=== PATIENT | male | born 1990 | race Caucasian/White ===

== ENCOUNTER 2018-12-16 15:57 | Emergency (ER) | payer MEDICAID ==
[~2018-12-16] VITALS: Ht 180.3 cm; Wt 86.3 kg
[~2018-12-16 15:57] MED LIST: NONE PER PT
--- NOTE | 2018-12-16 16:30 | NUR ---
SEE TRIAGE NOTE. PT PLACED ON HEART MONITOR, BP CUFF, PULSE OX. PT C/O R SIDED HILTON DESCRIBED "PRESSURE" WITH SLIGHT NAUSEA, NO PHOTOPHOBIA. PT AND FAMILY UPDATED ON POC. CALL LIGHT WITHIN REACH.
--- NOTE | 2018-12-16 17:34 | NUR ---
ROUNDED ON PT, INFORMED OF CURRENT RESULTS. VSS/UPDATED IN COMPUTER. AWAITING LABS RESULTS
[2018-12-16 17:35] LABS: MEAN CORPUSCULAR HEMOGLOBIN 33.9 pg (27.5-34.5); MEAN CORPUSCULAR HGB CONC 33.2 g/dL (33.2-36.2); MEAN PLATELET VOLUME 7.9 fL (7.4-10.4); PLATELET COUNT 237 x10^3/uL (130-400); RED BLOOD COUNT 4.86 x10^6/uL (4.38-5.82); RED CELL DISTRIBUTION WIDTH 13.9 % (9.4-14.8)
[2018-12-16 17:49] LABS: ALBUMIN 4.1 g/dL (3.4-5.0); ANION GAP 5 mmol/L (5-15); CALCIUM 9.6 mg/dL (8.5-10.1); CHLORIDE 107 mmol/L (98-107); CREATININE 1.08 mg/dL (0.7-1.3)
[2018-12-16 17:52] LABS: TROPONIN I < 0.015 ng/mL (0.000-0.045)
[2018-12-16 17:55] LABS: BASOPHILS # (AUTO) 0.05 x10^3/uL (0-0.1); BASOPHILS % (AUTO) 1 % (0-1); EOSINOPHILS # (AUTO) 0.12 x10^3/uL (0-0.4); EOSINOPHILS % (AUTO) 2 % (1-7); LYMPHOCYTES # (AUTO) 1.98 x10^3/uL (1-3.4); LYMPHOCYTES % (AUTO) 28 % (22-44); MD SCAN; MONOCYTES # (AUTO) 0.77 x10^3/uL (0.2-0.8); MONOCYTES % (AUTO) 11 % (2-9); NEUTROPHILS # (AUTO) 4.16 x10^3/uL (1.8-6.8); NEUTROPHILS % (AUTO) 59 % (42-75)
--- NOTE | 2018-12-16 18:15 | NUR ---
LAB RESULTS BACK, PT FOR RECHECK.
--- NOTE | 2018-12-16 18:55 | NUR ---
REPORT TO CURTIS MCCULLOUGH.
[2018-12-16 19:05] VITALS: BP 112/62
== END 2018-12-16 19:08 | disposition home or self-care (01) ==
LOC: ED 17:46
DX: R55 Syncope and collapse (principal); R00.2 Palpitations; F17.200 Nicotine dependence, unspecified, uncomplicated; Z90.89 Acquired absence of other organs
CPT/HCPCS: 36415; 70450; 71045; 80048; 82040; 84484; 85025; 93005; 99284

== ENCOUNTER 2020-02-07 19:14 | Emergency (ER) | payer MEDICAID ==
[~2020-02-07] VITALS: Ht 177.8 cm; Wt 91.4 kg
[2020-02-07] MEDS ORDERED: TIZA4CAP PO (19:38)
[2020-02-07] MEDS ORDERED: GABA100C PO (19:38)
[2020-02-07 20:55] VITALS: BP 128/65
[2020-02-07 21:11] LABS: ALANINE AMINOTRANSFERASE 71 U/L (12-78); ALBUMIN 4.3 g/dL (3.4-5.0); ANION GAP 6 mmol/L (5-15); CALCIUM 9.5 mg/dL (8.5-10.1); CHLORIDE 108 mmol/L (98-107); CREATININE 1.23 mg/dL (0.7-1.3)
[2020-02-07 21:15] LABS: ALKALINE PHOSPHATASE 81 U/L (45-117); BILIRUBIN,TOTAL 0.9 mg/dL (0.2-1.0); TOTAL PROTEIN 7.7 g/dL (6.4-8.2); TROPONIN I < 0.015 ng/mL (0.000-0.045)
[2020-02-07 21:16] LABS: BASOPHILS # (AUTO) 0.05 x10^3/uL (0-0.1); BASOPHILS % (AUTO) 0 % (0-1); EOSINOPHILS # (AUTO) 0.02 x10^3/uL (0-0.4); EOSINOPHILS % (AUTO) 0 % (1-7); LYMPHOCYTES # (AUTO) 2.93 x10^3/uL (1-3.4); LYMPHOCYTES % (AUTO) 27 % (22-44); MD NO; MEAN CORPUSCULAR HGB CONC 33.2 g/dL (33.2-36.2); MEAN CORPUSCULAR VOLUME 99.3 fL (81-97); MEAN PLATELET VOLUME 8.5 fL (7.4-10.4); MONOCYTES % (AUTO) 6 % (2-9); NEUTROPHILS # (AUTO) 7.37 x10^3/uL (1.8-6.8); NEUTROPHILS % (AUTO) 67 % (42-75); PLATELET COUNT 260 x10^3/uL (130-400); RED BLOOD COUNT 5.35 x10^6/uL (4.38-5.82); RED CELL DISTRIBUTION WIDTH 13.3 % (9.4-14.8)
--- NOTE | 2020-02-07 21:17 | NUR ---
PT GOING TO CT
[2020-02-07] MEDS ORDERED: OMNIPAQUE 350 MG/ML, 100ML BOTTLE ONE (21:31)
--- NOTE | 2020-02-07 21:40 | NUR ---
ALL RESULTS ARE BACK AT THIS TIME. CHART UP FOR RECHECK.
== END 2020-02-07 22:01 | disposition home or self-care (01) ==
LOC: ED 19:32
DX: K21.9 Gastro-esophageal reflux disease without esophagitis (principal); R09.1 Pleurisy; R07.89 Other chest pain; R10.12 Left upper quadrant pain
CPT/HCPCS: 36415; 71046; 74177; 80053; 83690; 84484; 85025; 93005; 99285; Q9967

== ENCOUNTER 2020-06-14 14:40 | Emergency (ER) | payer MEDICAID ==
[~2020-06-14] VITALS: Ht 177.8 cm; Wt 86.9 kg
[~2020-06-14 14:40] MED LIST changes: +GABA100C PO; +TIZA4CAP PO
--- NOTE | 2020-06-14 15:31 | NUR ---
pt presents to ED with c/o 4 days of sternal cp, palpitations, bilateral neck and jaw pain, sob, indigestion, dizziness. onset was after a workout which is a normal thing for the patient to do. pt states he had an overwhelming sense of anxiety last night. pt states CP is sternal, non-radiating, exacerbated by exertion. pt has hx renal cancer which has been in remission for 4 years. pt states he has experienced palpitations before but never to this severity. EKG taken on arrival in triage. all monitors in place. nsr on finish filer rate 70-80s with no ectopy. pt is neurologically intact, no focal weakness noted. no drift, bilateral grasp equal. call light in reach. awaiting labwork and dispo at this time.
[2020-06-14 15:32] LABS: BASOPHILS % (AUTO) 1 % (0-1); EOSINOPHILS % (AUTO) 1 % (1-7); LYMPHOCYTES % (AUTO) 33 % (22-44); MEAN CORPUSCULAR HEMOGLOBIN 33.6 pg (27.5-34.5); MEAN CORPUSCULAR HGB CONC 34.2 g/dL (33.2-36.2); MEAN PLATELET VOLUME 7.8 fL (7.4-10.4); MONOCYTES % (AUTO) 6 % (2-9); NEUTROPHILS % (AUTO) 59 % (42-75); PLATELET COUNT 268 x10^3/uL (130-400); RED BLOOD COUNT 5.46 x10^6/uL (4.38-5.82); RED CELL DISTRIBUTION WIDTH 13.1 % (9.4-14.8)
[2020-06-14 15:33] LABS: MD NO
[2020-06-14 15:39] LABS: ALANINE AMINOTRANSFERASE 59 U/L (12-78); ALBUMIN 4.3 g/dL (3.4-5.0); ANION GAP 4 mmol/L (5-15); CALCIUM 9.4 mg/dL (8.5-10.1); CHLORIDE 106 mmol/L (98-107); CREATININE 1.36 mg/dL (0.7-1.3)
[2020-06-14 15:43] VITALS: BP 136/103
[2020-06-14 15:49] LABS: ALKALINE PHOSPHATASE 91 U/L (45-117); BILIRUBIN,TOTAL 1.3 mg/dL (0.2-1.0); TOTAL PROTEIN 7.6 g/dL (6.4-8.2)
--- NOTE | 2020-06-14 16:21 | NUR ---
all results back, chart up for recheck. awaiting MD and further orders.
== END 2020-06-14 16:37 ==
LOC: ED 16:28
DX: R07.89 Other chest pain (principal); R00.2 Palpitations; R42 Dizziness and giddiness; M54.2 Cervicalgia; K21.9 Gastro-esophageal reflux disease without esophagitis; Z90.89 Acquired absence of other organs; Z85.53 Personal history of malignant neoplasm of renal pelvis
CPT/HCPCS: 36415; 71045; 80053; 83735; 84443; 85025; 85379; 93005; 99285

== ENCOUNTER 2020-11-13 22:27 | Emergency (ER) | payer MEDICAID ==
[~2020-11-13] VITALS: Ht 177.8 cm; Wt 92.8 kg
--- NOTE | 2020-11-13 22:41 | NUR ---
EKG COMPLETE IN TRIAGE
[2020-11-13] MEDS ORDERED: SODIUM CHLORIDE 0.9% 1,000ML IVBOLUS ONE (23:00)
[2020-11-13] MEDS ORDERED: LORazepam 2 MG/ML, 1ML IVPush ONE (23:00)
[2020-11-13] MEDS ORDERED: LORazepam 2 MG/ML, 1ML ONE (23:04)
[2020-11-13 23:14] LABS: BASOPHILS % (AUTO) 1 % (0-1); EOSINOPHILS % (AUTO) 1 % (1-7); LYMPHOCYTES % (AUTO) 36 % (22-44); MEAN CORPUSCULAR HEMOGLOBIN 33.7 pg (27.5-34.5); MEAN CORPUSCULAR HGB CONC 34.2 g/dL (33.2-36.2); MEAN PLATELET VOLUME 7.4 fL (7.4-10.4); MONOCYTES % (AUTO) 8 % (2-9); NEUTROPHILS % (AUTO) 55 % (42-75); PLATELET COUNT 294 x10^3/uL (130-400); RED BLOOD COUNT 5.05 x10^6/uL (4.38-5.82); RED CELL DISTRIBUTION WIDTH 13.5 % (9.4-14.8)
[2020-11-13 23:16] LABS: MD NO
[2020-11-13 23:20] LABS: ALANINE AMINOTRANSFERASE 59 U/L (12-78); ALBUMIN 4.3 g/dL (3.4-5.0); ANION GAP 9 mmol/L (5-15); CALCIUM 9.1 mg/dL (8.5-10.1); CHLORIDE 106 mmol/L (98-107); CREATININE 1.26 mg/dL (0.7-1.3)
[2020-11-13 23:25] LABS: ALKALINE PHOSPHATASE 81 U/L (45-117); BILIRUBIN,TOTAL 0.9 mg/dL (0.2-1.0); TOTAL PROTEIN 7.4 g/dL (6.4-8.2); TROPONIN I < 0.015 ng/mL (0.000-0.045)
--- NOTE | 2020-11-13 23:25 | NUR ---
PT. IS A & O X 4 WITH A GCS OF 15. PT. HAS MULTIPLE COMPLAINTS: CHEST PAIN, RIGHT EYE PAIN, BILAT HAND PAIN (PT. IS VERY ANXIOUS AND HYPERVENTILATING. INSTRUCTED TO SLOW HIS BREATHING) AND NECK AND BACK PAIN (CHRONIC). PT. DENIES TRAUMA AND STATES HE HAS A HX OF ANXIETY. PT.'S 12 LEAD EKG WAS DONE. PT. HAS THE CP MONITOR IN PLACE. IV ACCESS WAS ESTABLISHED AND PT. WAS MEDICATED WITH ATIVAN ORDERED. PCXR WAS DONE AND PT.'S LABS WERE DRAWN. PT.'S LUNGS ARE CTA THROUGHOUT. S1 S2 NOTED WITHOUT MURMURS, RUBS OR GALLOPS. PT.'S ABD. IS SOFT AND NON-TENDER WITH BS + X 4 QUADS. PULSES ARE +2 THROUGHOUT. PT. IS AMBULATORY. SIDERAILS REMAIN UP X 2 WITH THE CALL LIGHT IN PLACE. PT. IS TACHY ON THE MONITOR AND SLIGHTLY HYPERTENSIVE. HE IS CALMING DOWN WITH VERBAL REASSURANCE. SIDERAILS REMAIN UP X 2 WITH THE CALL LIGHT IN REACH.
--- NOTE | 2020-11-14 00:22 | NUR ---
PT. REMAINS MONITORED. VSS. PT. HAS C/O HILTON PAIN WHICH WAS DISCUSSED WITH DR. WOODS WHO WENT TO THE BEDSIDE TO REASSESS THE PT. AND DISCUSS THE PLAN OF CARE.
[2020-11-14] MEDS ORDERED: DIPHENHYDRAMINE 50 MG/ML, 1ML ONE (00:35)
[2020-11-14] MEDS ORDERED: KETOROLAC 30 MG/1 ML ONE (00:36)
--- NOTE | 2020-11-14 00:42 | NUR ---
PT. REMAINS MONITORED. VSS. PT. WAS MEDICATED FOR HILTON PAIN ORDERED. PT. HAS THE URINAL AT THE BEDSIDE AND IS AWARE THAT A SPECIMEN IS NEEDED. SIDERAILS REMAIN UP X 2 WITH THE CALL LIGHT IN REACH.
[2020-11-14] MEDS ORDERED: DIPHENHYDRAMINE 50 MG/ML, 1ML IVPush ONE (01:00)
[2020-11-14] MEDS ORDERED: KETOROLAC 30 MG/1 ML IVPush ONE (01:00)
--- NOTE | 2020-11-14 01:05 | NUR ---
PT. TO CT SCAN.
--- NOTE | 2020-11-14 01:08 | NUR ---
REPORT FROM CARROLL MCCULLOUGH
--- NOTE | 2020-11-14 01:09 | NUR ---
Toi marquez in [facility] - 11/14/20 at 0109 by LORI PT. IS IN CT SCAN.
--- NOTE | 2020-11-14 01:31 | NUR ---
REPORT TO HELEN MCCULLOUGH. URINE SAMPLE COLLECTED AND WALKED TO LAB BY LAB
--- NOTE | 2020-11-14 01:46 | NUR ---
REPORT FROM HERMAN MCCULLOUGH
[2020-11-14 01:57] LABS: AMPHETAMINE SCREEN, URINE Negative (Negative); BARBITURATE SCREEN, URINE Negative (Negative); BENZODIAZEPINE SCREEN, URINE Negative (Negative); CANNABINOID SCREEN, URINE Positive (Negative); COCAINE SCREEN, URINE Negative (Negative); METHADONE SCREEN, URINE Negative (Negative); OPIATE SCREEN, URINE Negative (Negative)
--- NOTE | 2020-11-14 02:13 | NUR ---
PT RESTING IN [facility] [place], WAITING FOR CT RESULTS TO BE READ.
[2020-11-14 02:35] VITALS: BP 115/65
== END 2020-11-14 02:37 | disposition home or self-care (01) ==
LOC: ED 11-14 00:54
DX: R06.00 Dyspnea, unspecified (principal); R51.9 Headache, unspecified; F41.1 Generalized anxiety disorder; F12.10 Cannabis abuse, uncomplicated
CPT/HCPCS: 36415; 70450; 71045; 80053; 80307; 80320; 84484; 85025; 93005; 96361; 96374; 96375; 99285; J1200; J1885; J2060; J7030; G0480